=== PATIENT | female | born 1990 ===

== ENCOUNTER 2018-06-06 16:06 | Outpatient (REF) | payer OTHER, SELFPAY ==
--- NOTE | 2018-06-06 14:00 | PAPFT_PTH ---
PATIENT: Rosie Mckeon LOC: [facility] U#:[id number] AGE/SX: 27/F ROOM: RE06/06/[address]: Crys Almendarez : 1990 BED: DIS: 06/06/2018 SPEC #: [id number] RECD: 06/07/18 13:12 STATUS: ERICA ORTA #: [id number] YOSELIN: 06/06/18 14:[address]: Crys Almendarez DEPT: [facility] Cytology RECD BY: Eleanor Deshpande Tissues: 1 - CX/ENDOCX FOR PAP SMEARS Procedures: PAP THIN PREP/[facility] Screening HPV DNA PROBE Comments: [id number] (CHLAMYDIA/GC)
[2018-06-08 09:58] LABS: HIV-1/2 Ag & Ab Screen Negative (NEGAT)
[2018-06-08 13:35] LABS: Chlamydia Result Negative; GC Result Negative; Specimen Description SEE COMMENTS
== END 2018-06-06 16:26 ==
LOC: NCHCN 16:06
PROVIDERS: PCP Family Medicine; Visit Provider Family Medicine
DX: Z11.3 Encounter for screening for infections with a predominantly sexual mode of transmission (principal); Z11.4 Encounter for screening for human immunodeficiency virus [HIV]; Z12.4 Encounter for screening for malignant neoplasm of cervix; Z11.51 Encounter for screening for human papillomavirus (HPV); Z00.00 Encounter for general adult medical examination without abnormal findings
CPT/HCPCS: 87389; 87491; 87591; 88142; 87624

== ENCOUNTER 2019-05-14 14:43 | Outpatient (REF) | payer OTHER, SELFPAY ==
[2019-05-14 21:50] LABS: Anion Gap 7.2 mmol/L (3-11); BUN 10 mg/dL (7-18); CO2 29.8 mmol/L (21.0-32.0); CREATININE 0.79 mg/dL (0.55-1.02); Calculated LDL 143 mg/dL (<100); Chloride 104 mmol/L (98-107); Cholesterol 249 mg/dL (<200); Glucose 81 mg/dL (74-106); HDL Cholesterol 65 mg/dL (40-60); Hemoglobin A1C 5.1 % (3.8-5.6); Potassium 4.3 mmol/L (3.5-5.1); Sodium 141 mmol/L (136-145); Triglyceride 205 mg/dL (<150)
[2019-05-16 10:33] LABS: Syphilis Serology (RPR) Negative (Negative)
[2019-05-16 11:45] LABS: Hepatitis C Ab w Rflx HCV PCR Negative (Negative)
[2019-05-16 11:48] LABS: HIV-1/2 Ag & Ab Screen Negative (Negative)
== END 2019-05-14 15:03 ==
LOC: NCHCN 14:43
PROVIDERS: PCP Family Medicine; Visit Provider Family Medicine
DX: Z00.00 Encounter for general adult medical examination without abnormal findings (principal); E66.9 Obesity, unspecified; Z11.3 Encounter for screening for infections with a predominantly sexual mode of transmission; Z11.4 Encounter for screening for human immunodeficiency virus [HIV]; Z11.59 Encounter for screening for other viral diseases
CPT/HCPCS: 80048; 80061; 86803; 87389; 83036; 86592

== ENCOUNTER 2019-08-29 11:08 | Outpatient (REF) | payer OTHER, SELFPAY ==
--- NOTE | 2019-08-29 09:00 | PAPFT_PTH ---
PATIENT: Rosie Mckeon [facility] U#:[id number] AGE/SX: 28/F ROOM: RE08/29/[address]: Crys Almendarez : 1990 BED: DIS: 08/29/2019 SPEC #: [id number] RECD: 08/30/19 12:20 STATUS: ERICA REBenoit #: [id number] YOSELIN: 08/29/19 09:[address]: Crys Almendarez DEPT: [facility] Cytology RECD BY: Eleanor Deshpande Tissues: 1 - CX/ENDOCX FOR PAP SMEARS Procedures: PAP THIN PREP/[facility] Screening HPV DNA PROBE Comments: [id number] (CHLAMYDIA/GC) (HPV 16 & 18/45)
[2019-09-02 15:46] LABS: Chlamydia Result Negative (Negative); GC Result Negative (Negative)
[2019-09-27 15:56] LABS: HPV 16 RNA Result Negative (Negative); HPV 18 & 45 RNA Result Negative (Negative)
== END 2019-08-29 11:28 ==
LOC: NCHCN 11:08
PROVIDERS: PCP Family Medicine; Visit Provider Family Medicine
DX: Z00.00 Encounter for general adult medical examination without abnormal findings (principal); Z11.3 Encounter for screening for infections with a predominantly sexual mode of transmission; Z12.4 Encounter for screening for malignant neoplasm of cervix; Z11.51 Encounter for screening for human papillomavirus (HPV)
CPT/HCPCS: 87491; 87591; 87625; 88142; 87624

== ENCOUNTER 2019-11-21 15:49 | Outpatient (REF) | payer OTHER, SELFPAY ==
[2019-11-25 18:05] LABS: SARS-CoV-2 RNA Undetected (Undetected); SARS-CoV-2 Specimen Source Nasopharynx
== END 2019-11-21 16:09 ==
LOC: NCHCN 15:49
PROVIDERS: PCP Family Medicine; Visit Provider Family Medicine
DX: Z11.59 Encounter for screening for other viral diseases (principal)
CPT/HCPCS: U0003

== ENCOUNTER 2020-01-14 20:43 | Outpatient (REF) | payer OTHER, SELFPAY ==
[2020-01-14 21:18] LABS: Abs Immature Grans 0.05 10^3/uL (0.0-0.06); Absolute Basophil Count 0.03 10^3/uL (0.0-0.2); Absolute Eosinophil Count 0.07 10^3/uL (0.0-0.7); Absolute Lymphocyte Count 2.71 10^3/uL (1.2-3.4); Absolute Monocyte Count 0.56 10^3/uL (0.1-0.8); Absolute Neutrophil Count 7.18 10^3/uL (1.2-6.7); Basophils % 0.3; Eosinophils % 0.7; HCT 41.7 % (36.0-46.0); HGB 13.6 g/dL (11.2-15.7); Immature Grans % 0.5; Lymphocytes % 25.6; MCH 31.1 pg (27.0-33.0); MCHC 32.6 % (32.0-36.0); MCV 95.4 fL (80-95); MPV 10.3 fL (8.0-11.0); Monocytes % 5.3; Neutrophils % 67.6; Nucleated RBC 0 %; Platelet Count 275 10^3/uL (130-400); RBC 4.37 10^6/uL (3.93-5.22); RDW 11.5 % (11.7-14.6); RDW-SD 39.9 fL
[2020-01-14 22:21] LABS: TSH (W/Ref FT4) 1.59 uIU/mL (0.36-3.74); Vitamin B12 267 pg/mL (193-986)
[2020-01-16 04:26] LABS: Vitamin D 25 Total 43.8 ng/ml (30-100)
== END 2020-01-14 21:03 ==
LOC: NCHCN 20:43
PROVIDERS: PCP Family Medicine; Visit Provider Nurse Practitioner Family
DX: F43.23 Adjustment disorder with mixed anxiety and depressed mood (principal); E55.9 Vitamin D deficiency, unspecified
CPT/HCPCS: 82306; 82607; 84443; 85025

== ENCOUNTER 2020-02-17 14:09 | Outpatient (REF) | payer OTHER, SELFPAY ==
[2020-02-20 18:04] LABS: SARS-CoV-2 RNA Undetected (Undetected); SARS-CoV-2 Specimen Source Nasal
== END 2020-02-17 14:29 ==
LOC: NCHCN 14:09
PROVIDERS: PCP Family Medicine; Visit Provider Nurse Practitioner Family
DX: Z20.828 Contact with and (suspected) exposure to other viral communicable diseases (principal)
CPT/HCPCS: U0003

== ENCOUNTER 2021-05-20 18:31 | Outpatient (REF) | payer BC, SELFPAY ==
[2021-05-20 21:34] LABS: Bilirubin Negative (Negative); Blood Negative (Negative); Clarity Clear (Clear); Glucose Negative (Negative); Ketones Negative (Negative); Leukocyte Esterase Negative (Negative); Nitrite Negative (Negative); Specific Gravity >= 1.030 (1.005-1.025); Urobilinogen 0.2 EU/dL (Up TO 0.2); pH 5.5 (5-8)
[2021-05-20 21:43] LABS: Hemoglobin A1C 5.1 % (<5.7)
[2021-05-20 21:53] LABS: ALT 18 U/L (14-59); AST 13 U/L (15-37); Albumin 3.6 g/dL (3.4-5.0); Alkaline Phosphatase 73 U/L (46-116); Anion Gap 9.1 mmol/L (3-11); BUN 12 mg/dL (7-18); Bilirubin, Total 0.4 mg/dL (0.2-1.0); CO2 25.9 mmol/L (21.0-32.0); CREATININE 0.8 mg/dL (0.55-1.02); Calcium 8.8 mg/dL (8.5-10.1); Calculated LDL 163 mg/dL (<100); Chloride 104 mmol/L (98-107); Cholesterol 272 mg/dL (<200); Glucose 85 mg/dL (74-106); HDL Cholesterol 72 mg/dL (40-60); Potassium 4.2 mmol/L (3.5-5.1); Sodium 139 mmol/L (136-145); Total Protein 6.9 g/dL (6.4-8.2); Triglyceride 186 mg/dL (<150)
[2021-05-24 15:33] LABS: Chlamydia Result Negative (Negative); GC Result Negative (Negative)
[2021-05-28 16:26] LABS: Testosterone, Free 0.24 ng/dL (0.06-1.03); Testosterone, Total 30 ng/dL (8-60)
== END 2021-05-20 18:32 | disposition home or self-care (01) ==
LOC: NCHCN 18:31
PROVIDERS: PCP Family Medicine; Visit Provider Family Medicine
DX: Z11.3 Encounter for screening for infections with a predominantly sexual mode of transmission (principal); E78.5 Hyperlipidemia, unspecified; E66.9 Obesity, unspecified; F41.1 Generalized anxiety disorder; Z00.00 Encounter for general adult medical examination without abnormal findings; R35.0 Frequency of micturition
CPT/HCPCS: 80053; 80061; 84402; 84403; 87491; 87591; 81003; 83036; 84443